=== PATIENT | female | born 1970 | race Caucasian/White ===

== ENCOUNTER → 2019-12-12 | Outpatient (REF) | payer OTHER ==
[~2019-12-12] MED LIST: COLA50CA3 PO; PERC5TAB PO; SERT25TA85 PO; ZOLO50TA PO
[2019-12-12 13:34] LABS: INFLUENZA A AMPLIFICATION NEGATIVE (NEGATIVE); INFLUENZA B AMPLIFICATION NEGATIVE (NEGATIVE)
== END ==
LOC: M LAB REF 12:06
PROVIDERS: ATTEND Physician Assistant Medical
DX: J11.1 Influenza due to unidentified influenza virus with other respiratory manifestations (principal)

== ENCOUNTER → 2019-12-28 | Outpatient (REF) | payer OTHER | LOC: M LAB REF 13:19 | PROVIDERS: ATTEND Physician Assistant Medical | DX: R19.7 Diarrhea, unspecified (principal) ==

== ENCOUNTER → 2020-05-26 | Outpatient (CLI) | payer BC, OTHER ==
[~2020-05-26] MED LIST changes: +ALIN500T2 PO; +BACT800T5 PO; +CVS1CAP2 PO; +CVS2.1SU PR; +DICY20TA11 PO; +DIFI200T PO; +DOCU100C16 PO; +HYDR-3363 PO; +TRAZ-252; +ZOLP10TA2
--- NOTE | 2020-06-25 11:29 | REP ---
ABDOMEN SERIES: 5-VIEWS HISTORY: Generalized abdominal pain. FINDINGS: Upright chest radiograph is normal. There is no evidence of infiltrate or free subdiaphragmatic air. Heart is not enlarged. Pleural angles arthroscopy sharp. Supine and erect views of the abdomen demonstrate a normal gas pattern. There is no evidence of mass, organomegaly, or pathologic calcification. Psoas margins and flank stripes are intact. No significant air fluid level is seen. IMPRESSION: Negative acute abdominal series. Normal bowel gas pattern. MTDD
== END ==
LOC: M WUC 08:39
PROVIDERS: ATTEND Nurse Practitioner Family
DX: R10.84 Generalized abdominal pain (principal)

== ENCOUNTER 2020-05-28 08:12 | Emergency (ER) | payer BC, OTHER ==
[~2020-05-28] VITALS: Ht 172.7 cm; Wt 70.7 kg
[~2020-05-28 08:12] MED LIST changes: -ALIN500T2 PO; -BACT800T5 PO; -CVS1CAP2 PO; -CVS2.1SU PR; -DICY20TA11 PO; -DIFI200T PO; -DOCU100C16 PO; -HYDR-3363 PO; -TRAZ-252; -ZOLP10TA2
[2020-05-28] MEDS ORDERED: CVS1CAP2 PO (08:25)
[2020-05-28] MEDS ORDERED: DOCU100C16 PO (08:25)
[2020-05-28] MEDS ORDERED: CVS2.1SU PR (08:25)
[2020-05-28] MEDS ORDERED: BACT800T5 PO (08:25)
[2020-05-28 09:40] LABS: BASO % 0.5 % (0.0-1.0); EOS % 0.5 % (0.0-3.0); HEMATOCRIT 38.6 % (36.0-47.0); HEMOGLOBIN 12.8 g/dl (12.0-15.5); LYMPH % 17.2 % (24.0-44.0); MEAN CORPUSCULAR HEMOGLOBIN 29.6 pg (27.0-33.0); MEAN CORPUSCULAR HGB CONC 33.2 g/dl (32.0-36.5); MEAN CORPUSCULAR VOLUME 89.1 fl (80.0-96.0); MONO # 0.3 10^3/uL (0.0-0.8); MONO % 4.9 % (0.0-5.0); NEUTROPHILS # 4.4 10^3/uL (1.5-8.5); NEUTROPHILS % 76.6 % (36.0-66.0); PLATELET COUNT, AUTOMATED 248 10^3/uL (150-450); RED BLOOD COUNT 4.33 10^6/uL (4.00-5.40); WHITE BLOOD COUNT 5.8 10^3/uL (4.0-10.0)
[2020-05-28 10:07] LABS: ALBUMIN 3.9 GM/DL (3.2-5.2); BILIRUBIN,DIRECT 0.2 MG/DL (0.0-0.2); BILIRUBIN,TOTAL 0.6 MG/DL (0.2-1.0); TOTAL PROTEIN 7.3 GM/DL (6.4-8.2)
[2020-05-28] MEDS ORDERED: ISOVUE-370 76% 100ML VIAL As Ordered ONE (10:14)
[2020-05-28] MEDS ORDERED: MAGNESIUM CITRATE 300 ML BTL PO ONE (10:45)
--- NOTE | 2020-05-28 10:50 | REPVR ---
PROCEDURE INFORMATION: Exam: CT Abdomen And Pelvis With Contrast Exam date and time: 05/28/2020 10:28 AM Age: 49 years old Clinical indication: Abdominal pain; Additional info: Abd pain/bloating x2 weeks TECHNIQUE: Imaging protocol: Computed tomography of the abdomen and pelvis with intravenous contrast. Radiation optimization: All CT scans at this facility use at least one of these dose optimization techniques: automated exposure control; mA and/or kV adjustment per patient size (includes targeted exams where dose is matched to clinical indication); or iterative reconstruction. Contrast material: ISO 370; Contrast volume: 100 ml; Contrast route: INTRAVENOUS (IV); COMPARISON: CR ABDOMEN FLAT/UPRIGHT, PA CHEST 05/26/2020 8:56 AM FINDINGS: Liver: Normal. No mass. Gallbladder and bile ducts: Normal. No calcified stones. No ductal dilation. Pancreas: Normal. No ductal dilation. Spleen: Normal. No splenomegaly. Adrenals: Normal. No mass. Kidneys and ureters: Normal. No hydronephrosis. Stomach and bowel: Colonic diverticulosis. No evidence of acute diverticulitis. Appendix: No evidence of appendicitis. Intraperitoneal space: Unremarkable. No free air. No significant fluid collection. Vasculature: Unremarkable. No abdominal aortic aneurysm. Lymph nodes: Unremarkable. No enlarged lymph nodes. Bladder: Unremarkable as visualized. Reproductive: The patient appears to be status post hysterectomy. Bones/joints: Benign enchondroma in the right acetabulum. Soft tissues: Tiny fat containing umbilical hernia. IMPRESSION: 1. No acute abnormality within the abdomen/pelvis. 2. Mild colonic diverticulosis. Electronically signed by: Tierra Hernandez On 05/28/2020 10:50:46 AM
[2020-05-28] MEDS ORDERED: FLEET ENEMA PR ONE (11:30)
[2020-05-28] MEDS ORDERED: hydrOXYzine 25 MG TAB PO STA (13:38)
[2020-05-28] MEDS ORDERED: ALIN500T2 PO (15:57)
[2020-05-28 16:15] VITALS: BP 123/58
[2020-08-07] MEDS ORDERED: ZOLP10TA2 (10:36)
[2020-08-07] MEDS ORDERED: TRAZ-252 (10:36)
== END 2020-05-28 16:18 | disposition home or self-care (01) ==
LOC: M ED 08:12
DX: A07.2 Cryptosporidiosis (principal); Z79.899 Other long term (current) drug therapy
CPT/HCPCS: 36415; 74177; 80047; 80076; 81001; 83690; 85025; 87507; 99284; Q9967

== ENCOUNTER 2020-07-04 06:02 | Emergency (ER) | payer BC, OTHER ==
[~2020-07-04] VITALS: Ht 172.7 cm; Wt 65.5 kg
[~2020-07-04 06:02] MED LIST changes: +ALIN500T2 PO; +BACT800T5 PO; +CVS1CAP2 PO; +CVS2.1SU PR; +DOCU100C16 PO
[2020-07-04] MEDS ORDERED: DIFI200T PO (06:12)
[2020-07-04] MEDS ORDERED: DICY20TA11 PO (06:12)
[2020-07-04] MEDS ORDERED: HYDR-3363 PO (06:12)
[2020-07-04] MEDS ORDERED: NS 1,000 ML IV ONE (06:45)
[2020-07-04 06:57] LABS: BASO % 0.5 % (0.0-1.0); EOS # 0.1 10^3/uL (0.0-0.5); HEMATOCRIT 38.3 % (36.0-47.0); HEMOGLOBIN 12.9 g/dl (12.0-15.5); LYMPH # 1.3 10^3/uL (1.5-5.0); LYMPH % 21.9 % (24.0-44.0); MEAN CORPUSCULAR HEMOGLOBIN 29.9 pg (27.0-33.0); MEAN CORPUSCULAR HGB CONC 33.7 g/dl (32.0-36.5); MEAN CORPUSCULAR VOLUME 88.7 fl (80.0-96.0); MONO # 0.5 10^3/uL (0.0-0.8); MONO % 7.8 % (0.0-5.0); NEUTROPHILS % 68.6 % (36.0-66.0); PLATELET COUNT, AUTOMATED 235 10^3/uL (150-450); RED BLOOD COUNT 4.32 10^6/uL (4.00-5.40); WHITE BLOOD COUNT 5.8 10^3/uL (4.0-10.0)
[2020-07-04 07:23] LABS: ALBUMIN 4.1 GM/DL (3.2-5.2); ALT/SGPT 45 U/L (12-78); BILIRUBIN,DIRECT 0.2 MG/DL (0.0-0.2); BILIRUBIN,TOTAL 0.5 MG/DL (0.2-1.0); BLOOD UREA NITROGEN 8 MG/DL (7-18); CALCIUM LEVEL 9.6 MG/DL (8.5-10.1); CARBON DIOXIDE LEVEL 27 MEQ/L (21-32); CHLORIDE LEVEL 104 MEQ/L (98-107); CREATININE FOR GFR 0.84 MG/DL (0.55-1.30); GLOMERULAR FILTRATION RATE > 60.0 (>58); GLUCOSE, FASTING 98 MG/DL (70-100); LIPASE 90 U/L (73-393); POTASSIUM SERUM 4.1 MEQ/L (3.5-5.1); SODIUM LEVEL 136 MEQ/L (136-145); TOTAL PROTEIN 7.2 GM/DL (6.4-8.2)
[2020-07-04] MEDS ORDERED: KETOROLAC 30 MG/ML 1ML VIAL IV ONE (08:45)
--- NOTE | 2020-07-04 09:29 | REPVR ---
PROCEDURE INFORMATION: Exam: CT Head Without Contrast Exam date and time: 07/04/2020 9:12 AM Age: 49 years old Clinical indication: Numbness / parasthesia; Prior surgery; Surgery date: 6+ months; Surgery type: Craniotomy; Additional info: Numbness/tingling TECHNIQUE: Imaging protocol: Computed tomography of the head without contrast. Radiation optimization: All CT scans at this facility use at least one of these dose optimization techniques: automated exposure control; mA and/or kV adjustment per patient size (includes targeted exams where dose is matched to clinical indication); or iterative reconstruction. COMPARISON: No relevant prior studies available. FINDINGS: Brain: Normal. No hemorrhage. Unremarkable white matter. No mass effect. Cerebral ventricles: No ventriculomegaly. Bones/joints: There are left frontotemporal parietal craniotomy changes. Paranasal sinuses: Visualized sinuses are unremarkable. No fluid levels. Mastoid air cells: Visualized mastoid air cells are well aerated. Soft tissues: Unremarkable. IMPRESSION: No acute intracranial hemorrhage or edema. Electronically signed by: Enid Ponce On 07/04/2020 09:29:45 AM
[2020-07-04 13:33] VITALS: BP 128/69
[2020-08-07] MEDS ORDERED: TRAZ-252 (10:36)
[2020-08-07] MEDS ORDERED: ZOLP10TA2 (10:36)
== END 2020-07-04 13:34 | disposition home or self-care (01) ==
LOC: M ED 06:02
DX: R42 Dizziness and giddiness (principal); E11.9 Type 2 diabetes mellitus without complications; Z79.899 Other long term (current) drug therapy; Z86.19 Personal history of other infectious and parasitic diseases
CPT/HCPCS: 70450; 80048; 80076; 81001; 83605; 83690; 85025; 87040; 87507; 96361; 96374; 99284; J1885

== ENCOUNTER 2020-07-05 14:59 | Outpatient (CLI) | payer BC, OTHER ==
[~2020-07-05] VITALS: Ht 172.7 cm; Wt 63.3 kg
[~2020-07-05 14:59] MED LIST changes: +DICY20TA11 PO; +DIFI200T PO; +HYDR-3363 PO
[2020-07-05] MEDS: BEZLOTOXUMAB 750 MG in NS 100 ML IV ONE (15:34)
[2020-07-05 15:35] VITALS: BP 110/55
[2020-07-05 17:30] VITALS: BP 100/60
[2020-08-07] MEDS ORDERED: ZOLP10TA2 (10:36)
[2020-08-07] MEDS ORDERED: TRAZ-252 (10:36)
== END 2020-07-05 17:30 | disposition home or self-care (01) ==
LOC: M INFU 14:59
PROVIDERS: ATTEND Internal Medicine Infectious Disease
DX: A04.71 Enterocolitis due to Clostridium difficile, recurrent (principal)
CPT/HCPCS: 96365; J0565

== ENCOUNTER → 2020-08-04 | Outpatient (CLI) | payer BC, OTHER ==
[~2020-08-04] MED LIST changes: +TRAZ-252; +ZOLP10TA2
== END ==
LOC: M LABSMTC 11:28
PROVIDERS: ATTEND Anesthesiology
DX: Z01.812 Encounter for preprocedural laboratory examination (principal); Z20.828 Contact with and (suspected) exposure to other viral communicable diseases
CPT/HCPCS: C9803; U0003

== ENCOUNTER → 2020-08-06 | Outpatient (CLI) | payer BC, OTHER ==
[~2020-08-06] MED LIST changes: +GLUCAGON INJ 1MG VIAL As Ordered ONE; +ISOVUE-370 76% 100ML VIAL As Ordered ONE; +VoLumen 0.1% SUSPENSION 450ML BOTTLE As Ordered ONE
--- NOTE | 2020-08-06 15:37 | REP ---
INDICATION: ABNORMAL WEIGHT LOSS FILE ROOM COMPARISON: None. TECHNIQUE: CT Scan of the abdomen and pelvis was performed with intravenous administration of 100 cc of Isovue 370, and volumen oral contrast. Sagittal and coronal standard and MIP reconstruction images are provided. FINDINGS: CT abdomen: The lung bases are unremarkable. The liver, gallbladder, spleen and pancreas are normal. The adrenals and kidneys are normal. there is no pneumoperitoneum or ascites. There is no hiatal hernia the stomach shows moderately large volume of retained fluid. There is slight thickening of mijares of the duodenum and proximal jejunum of distal jejunum and the entire ileum show normal wall thickness all these loops are filled with the oral contrast which extends into the colon. From the mid DA Tamara and to the terminal ileum at the ileocecal valve there is no wall thickening. I do not see areas of mesenteric edema adjacent to small bowel loops. The right and transverse colon have mostly fluid in scattered small amounts of stool of the splenic flexure and left colon have more stool with small amounts of fluid there is no sign of colitis or diverticulitis in the abdomen proper. There is omental fat and a small umbilical hernia without bowel herniation. The aorta and major branches in the abdomen were unremarkable. Kidneys show no stone, mass or hydronephrosis nor evidence of hydroureter. No perforation, free air or ascites. There is no adenopathy. Bones are normal. CT pelvis: Distal small bowel loops without dilatation wall thickening or adjacent inflammatory change in the fat moderate stool in the left colon to rectosigmoid without inflammatory changes in the adjacent fat or diverticulosis.. No ventral or inguinal hernia. No pelvic mass bladder without mass wall thickening stone or focal lesion. Uterus is surgically absent the vaginal cuff intact no pelvic mass. Bony pelvis unremarkable. IMPRESSION: 1. Nonspecific mild bowel wall thickening of the proximal jejunum and duodenum representing a non-specific enteritis. No inflammatory changes in the adjacent fat, fluid collections or perforation. From mid jejunum through the terminal ileum and ileocecal valve, normal wall thickness and no inflammatory changes in the adjacent mesenteric fat. No adenopathy. Otherwise negative exam. <Electronically signed by Giancarlo Louis > 08/06/20 [id number]
== END ==
LOC: M RAD 12:42
PROVIDERS: ATTEND Internal Medicine Gastroenterology
DX: R63.4 Abnormal weight loss (principal); K52.9 Noninfective gastroenteritis and colitis, unspecified
CPT/HCPCS: 74177; J1610; Q9967

== ENCOUNTER 2020-08-09 13:08 | Day surgery (SDC) | payer BC, OTHER ==
[~2020-08-09] VITALS: Ht 172.7 cm; Wt 62.3 kg
[~2020-08-09 13:08] MED LIST changes: -GLUCAGON INJ 1MG VIAL As Ordered ONE; -ISOVUE-370 76% 100ML VIAL As Ordered ONE; +NS 1,000 ML IV ONE; -VoLumen 0.1% SUSPENSION 450ML BOTTLE As Ordered ONE
[2020-08-09] MEDS ORDERED: LIDOCAINE 2% 100MG/5ML SDV (FOR ANES.) As Ordered ONE (15:24)
[2020-08-09] MEDS ORDERED: propofoL 200 MG/20 ML VIAL As Ordered ONE (15:25)
--- NOTE | 2020-08-09 15:27 | ROOR ---
Patient Name: Nel Erwin Procedure Date: 08/09/2020 2:59 PM Date of : 1970 Age: 49 Room: [facility] Gender: Female Note Status: Finalized Procedure: Upper GI endoscopy Indications: Epigastric abdominal pain, Abnormal CT of the GI tract Providers: Benjamin RODRÍGUEZ MD Referring MD: Corrina Watson DO Requesting Provider: Medicines: Monitored Anesthesia Care Complications: No immediate complications. Procedure: Pre-Anesthesia Assessment: - The heart rate, respiratory rate, oxygen saturations, blood pressure, adequacy of pulmonary ventilation, and response to care were monitored throughout the procedure. The Colonoscope was introduced through the mouth, and advanced to the fourth part of duodenum. The upper GI endoscopy was accomplished without difficulty. The patient tolerated the procedure well. Findings: The esophagus was normal. The stomach was normal. The examined duodenum including at least 4th portion, (probably to proximal jejunum) was normal. Biopsies were obtained in the fourth portion of the duodenum and in the proximal jejunum with cold forceps for histology. Biopsies were taken with a cold forceps in the gastric antrum for Helicobacter pylori testing. Impression: - Normal esophagus. - Normal stomach. - Normal examined duodenum including 4th portion. - Biopsies were obtained in the fourth portion of the duodenum and in the proximal jejunum. - Biopsies were taken with a cold forceps for Helicobacter pylori testing. Recommendation: - Telephone endoscopist for pathology results in 2 weeks. - Observe patient's clinical course. Benjamin Rodríguez MD Benjamin RODRÍGUEZ MD 08/09/2020 3:26:35 PM Electronically signed by Benjamin RODRÍGUEZ MD Number of Addenda: 0 Note Initiated On: 08/09/2020 2:59 PM Estimated Blood Loss: Estimated blood loss: none.
--- NOTE | 2020-08-09 16:02 | ROOR ---
Patient Name: Nel Erwin Procedure Date: 08/09/2020 3:00 PM Date of : 1970 Age: 49 Room: OP02 Gender: Female Note Status: Finalized Procedure: Colonoscopy Indications: Change in bowel habits, Change in stool caliber, Weight loss, Previous C difficile, Previous Cryptosporidiosis. (Pt with lingering residual symptoms). Providers: Benjamin RODRÍGUEZ MD Referring MD: Corrina Watson DO Requesting Provider: Medicines: Monitored Anesthesia Care Complications: No immediate complications. Procedure: Pre-Anesthesia Assessment: - The heart rate, respiratory rate, oxygen saturations, blood pressure, adequacy of pulmonary ventilation, and response to care were monitored throughout the procedure. The Colonoscope was introduced through the anus and advanced to 15 cm into the ileum. The colonoscopy was performed without difficulty. The patient tolerated the procedure well. The quality of the bowel preparation was good. Findings: The perianal and digital rectal examinations were normal. The colon (entire examined portion) was mildly redundant. The mucosa vascular pattern in the rectum and in the sigmoid colon was segmentally decreased. This was biopsied with a cold forceps for histology. The exam was otherwise normal throughout the examined colon. Biopsies for histology were taken with a cold forceps from the entire colon for evaluation of microscopic colitis. The terminal ileum appeared normal. Biopsies were taken with a cold forceps in the terminal ileum for histology. Impression: - Redundant colon. - Small internal hemorrhoids. - The colon is normal with mildly decreased mucosa vascular pattern in the rectum and in the sigmoid colon. Biopsied. - The terminal ileum was normal. - Biopsies were taken with a cold forceps from the entire colon for evaluation of microscopic colitis. - Biopsies were taken with a cold forceps for histology in the terminal ileum. Recommendation: - Telephone endoscopist for pathology results in 2 weeks. Benjamin Rodríguez MD Benjamin RODRÍGUEZ MD 08/09/2020 4:01:33 PM Electronically signed by Benjamin RODRÍGUEZ MD Number of Addenda: 0 Note Initiated On: 08/09/2020 3:00 PM Estimated Blood Loss: Estimated blood loss: none.
[2020-08-09 16:15] VITALS: BP 109/64
== END 2020-08-09 16:32 | disposition home or self-care (01) ==
LOC: M OPP 13:08
PROVIDERS: ATTEND Internal Medicine Gastroenterology
DX: Q43.8 Other specified congenital malformations of intestine (principal); R19.4 Change in bowel habit; R63.4 Abnormal weight loss; R19.5 Other fecal abnormalities; K64.8 Other hemorrhoids; R10.13 Epigastric pain; R93.3 Abnormal findings on diagnostic imaging of other parts of digestive tract; Z86.19 Personal history of other infectious and parasitic diseases; Z79.899 Other long term (current) drug therapy; Z88.8 Allergy status to other drugs, medicaments and biological substances

== ENCOUNTER 2022-01-19 07:54 | Day surgery (SDC) | payer BC, OTHER ==
[~2022-01-19] VITALS: Ht 172.7 cm; Wt 66.2 kg
[~2022-01-19 07:54] MED LIST changes: +ACET-1349 PO; -DICY20TA11 PO; +DICY20TA20 PO; +LR 1,000 ML IV ONE; -NS 1,000 ML IV ONE; +PROB250C PO; +VITA100093 PO
[2022-01-19] MEDS ORDERED: fentaNYL 100 MCG/2 ML INJECTION As Ordered ONE (08:33)
[2022-01-19] MEDS ORDERED: LIDOCAINE W/EPINEPHRINE 1% 20ML VIAL As Ordered ONE (08:33)
[2022-01-19] MEDS ORDERED: MIDAZOLAM INJ 2MG/2ML VIAL (J2250 PER 1MG) As Ordered ONE (08:33)
[2022-01-19] MEDS ORDERED: OXYMETAZOLINE 0.05% NASAL SPRAY (AFRIN) As Ordered ONE (08:33)
[2022-01-19] MEDS ORDERED: COCAINE 4% 4ML NASAL SOLUTION BTL As Ordered ONE (08:33)
[2022-01-19] MEDS ORDERED: LIDOCAINE 2% 100MG/5ML SDV (FOR ANES.) As Ordered ONE (08:33)
[2022-01-19] MEDS ORDERED: propofoL 200 MG/20 ML VIAL As Ordered ONE (08:33)
[2022-01-19] MEDS ORDERED: ROCURONIUM BROMIDE 50 MG/5 ML VIAL As Ordered ONE (08:33)
[2022-01-19] MEDS ORDERED: dexameTHASONE 4 MG/ML 1ML VIAL (J1100 PER 1MG) As Ordered ONE (08:57)
[2022-01-19] MEDS ORDERED: PHENYLephrine 500MCG 5ML (100MCG/ML) SYRINGE As Ordered ONE ×2 (09:00→09:13)
[2022-01-19] MEDS ORDERED: ACETAMINOPHEN 1000MG 100ML IV BTL (OFIRMEV) (J0131 PER 10MG) As Ordered ONE (09:02)
[2022-01-19] MEDS ORDERED: SUGAMMADEX SODIUM 500 MG/5 ML VIAL (BRIDION) As Ordered ONE ×2 (09:05→10:33)
[2022-01-19] MEDS ORDERED: METHYLENE BLUE 0.5% (5MG/ML) 10 ML AMP (PROVAYBLUE) As Ordered ONE (09:07)
[2022-01-19] MEDS ORDERED: ONDANSETRON 4MG/2ML VIAL As Ordered ONE (09:10)
[2022-01-19] MEDS ORDERED: MORPHINE 10 MG/ML 1ML VIAL IV PRN (09:55)
[2022-01-19] MEDS ORDERED: LR 1,000 ML IV SCH ×2 (09:55)
[2022-01-19] MEDS ORDERED: ONDANSETRON 4MG/2ML VIAL IV PRN ×2 (09:55)
[2022-01-19] MEDS ORDERED: oxyCODONE 5MG TAB PO PRN (09:55)
[2022-01-19] MEDS ORDERED: ANEXSIA, NORCO 7.5MG/325MG TABLET(HYDROCODONE/APAP) PO PRN (09:55)
[2022-01-19] MEDS ORDERED: fentaNYL 100 MCG/2 ML INJECTION IV PRN (09:55)
[2022-01-19 10:25] VITALS: BP 125/58
== END 2022-01-19 11:05 | disposition home or self-care (01) ==
LOC: M SDC 07:54
PROVIDERS: ATTEND Otolaryngology
DX: J34.3 Hypertrophy of nasal turbinates (principal); Z86.19 Personal history of other infectious and parasitic diseases; Z88.8 Allergy status to other drugs, medicaments and biological substances
CPT/HCPCS: 30140; C9046; J0131; J1100; J2250; J2370; J2405; J3010; Q9968